=== PATIENT | male | born 1940 | race Caucasian/White ===

== ENCOUNTER 2019-01-25 08:31 | Day surgery (SDC) | payer MEDICARE, OTHER ==
[2019-01-19 10:37] LABS: HEMATOCRIT 38.6 % (37.9-51.0); HEMOGLOBIN 13.8 g/dL (13.5-17.0); MEAN CORPUSCULAR HEMOGLOBIN 33.7 pg (27.0-33.4); MEAN CORPUSCULAR HGB CONC 35.7 g/dL (32.0-36.0); MEAN CORPUSCULAR VOLUME 94 fl (80-97); PLATELET COUNT 228 10^3/uL (150-450); RED BLOOD COUNT 4.08 10^6/uL (4.35-5.55); WHITE BLOOD COUNT 5.5 10^3/uL (4.0-10.5)
[~2019-01-25 08:31] MED LIST: ACETAMINOPHEN 325 MG TABLET PO PRN; CEFAZOLIN 1 GM/D5W RTU 1 GM/50 ML RTUPB IV ONE; CEFAZOLIN 1 GM/D5W RTU 1 GM/50 ML RTUPB IV PRN; LACTATED RINGERS 1000 ML IV PRN; LIDOCAINE 0.5% INJ-PF (5 MG/ML) 50 ML SDV SUBCUT PRN
[2019-01-25] MEDS ORDERED: KETOROLAC TROMETHAMINE 60 MG/2 ML SDV ONE (10:17)
[2019-01-25] MEDS ORDERED: SUCCINYLCHOLINE CHLORIDE INJ 200 MG/10 ML VIAL ONE (10:17)
[2019-01-25] MEDS ORDERED: ONDANSETRON HCL INJ/PF 4 MG/2 ML SDV ONE (10:17)
[2019-01-25] MEDS ORDERED: DEXAMETHASONE SOD PHOSPHATE INJ 4 MG/1 ML VIAL ONE (10:17)
[2019-01-25] MEDS ORDERED: ROCURONIUM BROMIDE INJ 50 MG/5 ML VIAL IV ONE (10:17)
[2019-01-25] MEDS ORDERED: BUPIVACAINE HCL 0.25 % INJ/PF (2.5 MG/1 ML) 30 ML VIAL ONE (11:26)
[2019-01-25] MEDS ORDERED: BUPIVACAINE INJ/PF LIPOSOME/PF 266 MG/20 ML SDV ONE (11:26)
[2019-01-25] MEDS ORDERED: HYDROMORPHONE HCL INJ/PF 2 MG/ML AMPULE ONE (11:30)
[2019-01-25] MEDS ORDERED: MIDAZOLAM 2 MG/2 ML INJ ONE (11:30)
[2019-01-25] MEDS ORDERED: ACETAMINOPHEN 1,000 MG/100 ML RTUPB IV ONE (11:31)
[2019-01-25] MEDS ORDERED: PROPOFOL INJ 200 MG/20 ML VIAL IV ONE (11:31)
[2019-01-25] MEDS ORDERED: MORPHINE SULFATE 10 MG/ML INJ IV PRN (12:28)
[2019-01-25] MEDS ORDERED: FENTANYL CITRATE INJ/PF 100 MCG/2 ML AMPUL IV PRN ×3 (12:28)
[2019-01-25] MEDS ORDERED: PROMETHAZINE HCL INJ 25 MG/1 ML VIAL IV PRN (12:28)
[2019-01-25] MEDS ORDERED: MEPERIDINE HCL/PF INJ 25 MG/1 ML DISP.SYRIN IV PRN (12:28)
[2019-01-25] MEDS ORDERED: ONDANSETRON HCL INJ/PF 4 MG/2 ML SDV IV PRN (12:28)
[2019-01-25] MEDS ORDERED: DIPHENHYDRAMINE HCL 50 MG/ML VIAL IV PRN (12:28)
[2019-01-25] MEDS ORDERED: OXYCODONE-ACETAMINOPHEN 5-325 MG TABLET PO PRN (13:25)
--- NOTE | 2019-01-25 13:25 | Discharge Summary ---
Discharge Summary (SDC) - Discharge Final Diagnosis: Left indirect inguinal hernia Date of Surgery: 01/25/19 Discharge Date: 01/25/19 Condition: Good Treatment or Instructions: [facility] [address] [place] [id number] Discharge Instructions: Open Abdominal Procedures (Hernia, Bowel Surgery) 1.General Information: a. DO NOT DRIVE a car or operative machinery for 1-2 weeks. b. DO NOT consume alcohol, tranquilizers, sleeping medication, or any non- prescribed medication for 24 hours unless approved by your doctor or as long as taking pain medication. c. DO NOT make important decisions or sign any important papers for the first 24 hours after surgery. d. When discharged home the same day as surgery have a responsible person with you the first night. 2.Activity Restriction: 8 weeks; a. Avoid heavy lifting (> 10-15 lbs), straining abdominal muscles and sports, mowing lawn, vacuum film cleaner and bending over a lot. b. Walking is important to avoid blood clots in the legs and deep breathing can prevent pneumonia. c. If it fine to go for walks, up and down steps, and ride in a car. 3.Treatment: a. You may shower in 24 hours. Leave skin glue intact. You should not bathe in a tub or go swimming for 2 weeks. You may cover the incision with gauze and tape if it is more comfortable. c. Do not use oils, powders, or lotion on your incision. 4.Medications: a. You may take prescription tablets for pain if needed, one every 4 hours (_T oradol). c. You may resume all normal medications unless a change is specified by your doctors. 5.Diet: a. If going home the same day as surgery start with clear liquids, and if you do well then advance to normal foods low inf fat and protein. Smaller portion size may be evans the first night. 6.Notify Physician If: a. Pain is not relieved by pain medication b. Persistent nausea and vomiting c. Chills, fever (above 101) d. Persistent bleeding or swelling at the operative site e. Unable to urinate for 6-8 hours f. Increased redness, drainage, or foul smelling discharge from incision 7. Follow Up Care: a. Please call our office to schedule an appointment with your doctor for 2 weeks. In the event of any postoperative problems or questions you may call our office during business hours or the On-Call surgeon through the clay press operator [facility]. [facility] [phone] [facility] [phone] (Ask for the surgeon quality control auditor) b. I understand the instructions for my postoperative care as described above and a copy has been given to me. Witness Patient/Significant Other Date Prescriptions: Ketorolac Tromethamine [Toradol 10 mg Tablet] 10 mg PO Q6HP PRN #20 tablet PRN Reason: Referrals: DILAN BRIDGES FNP [Primary Care Provider] - Discharge Diet: As Tolerated Discharge Activity: Balance Activity w/Rest, No Lifting Over 10 Pounds, No Lifting/Push/Pulling, Walk Frequently Report the Following to Your Physician Immediately: Increase in Pain, Fever over 101 Degrees, Unusual Bleeding, Redness, Swelling, Warmth, Increased Soreness, Drainage-Foul Smelling
--- NOTE | 2019-01-25 14:46 | Operative Report ---
Operative Report DATE OF SURGERY: 01/25/19 PREOPERATIVE DIAGNOSIS: Left inguinal hernia, indirect POSTOPERATIVE DIAGNOSIS: Same OPERATION: Left inguinal exploration, operative repair of left with plug and overlay polypropylene mesh repair prosthesis. SURGEON: ORLIN PARKER VASCULAR RADIOLOGIST: RENAE WILLIAM ANESTHESIA: GA TISSUE REMOVED OR ALTERED: Left inguinal hernia sac and cord lipoma COMPLICATIONS: None ESTIMATED BLOOD LOSS: Scant INTRAOPERATIVE FINDINGS: See below PROCEDURE: The patient was seen in the preop holding over the left inguinal area was marked. He was then taken to the main operating where general anesthesia was induced. Left groin was clipped of hair, prepped and draped sterile fashion including the genitalia. Surgical plan and surgical timeout were conducted. Skin was anesthetized with quarter percent Marcaine. A standard 7 cm left inguinal herniorrhaphy incision was made with a #10 blade. Subcutaneous tissue Giovanny's fascia divided as encountered. The external oblique aponeurosis was anesthetized with quarter percent Marcaine, opened along direction of its fibers, and superior and inferior fascial flaps developed. Contents to the inguinal canal dissected out using blunt and electrocautery dissection. The spermatic cord and vessels were from the cord lipoma which was elongated and originating from the retroperitoneum at the level of the internal ring. Complete mobilization of the cord lipoma was then undertaken, and was amputated at its base of the stalk oversewed with 3-0 Vicryl suture. The indirect inguinal hernia sac was mobilized to its point of origination, opened, and found to communicate freely with the peritoneal cavity. There were no incarcerated contents. The sac was twisted on its base, oversewn at its base with a 2-0 Vicryl suture, then amputated and passed off to pathology. We now cleaned up the floor the inguinal canal, and confirmed we were going to repair a indirect inguinal hernia defect by occupying the internal ring with a inverted medium size plug mesh. This was brought onto the field after checking for appropriate timing of expiration. It was deployed into the internal ring, secured to conjoined tendon with 3 interrupted 0 PDS sutures. The overlay mesh was then used to reinforce the entire floor the inguinal canal after trended to the appropriate configuration, and selling it to Poupart's ligament, conjoined tendon in a circumferential fashion with 0 PDS sutures. The new internal ring was checked for patency and appropriate degree of laxity it was felt to be satisfactory. Approximately 10 sutures were used to secure the mesh into position. Of note the ilioinguinal and genitofemoral nerves were not visualized during the dissection. The external oblique aponeurosis was closed along the direction of its fibers with 2-0 Vicryl suture again ensuring the opening to the external ring was of appropriate caliber. Giovanny's fascia skin closed with 3-0 Vicryl, Dermabond glue applied, 20 cc of Exparel deployed into the subcutaneous tissues. Patient tolerated the procedure well, extubated, and taken recovery in stable condition. The physician assistant property manager, Ms. Kuo, provided assistance during this case by: Assisting retracting tissue, instillation of local anesthesia and closure of skin incisions.
[2019-01-25 14:59] VITALS: BP 115/72
== END 2019-01-25 14:55 | disposition home or self-care (01) ==
LOC: OROUT 08:31
PROVIDERS: ATTEND Surgery
DX: K40.90 Unilateral inguinal hernia, without obstruction or gangrene, not specified as recurrent (principal); D17.6 Benign lipomatous neoplasm of spermatic cord; E11.9 Type 2 diabetes mellitus without complications; I10 Essential (primary) hypertension; N40.0 Benign prostatic hyperplasia without lower urinary tract symptoms; K21.9 Gastro-esophageal reflux disease without esophagitis; Z87.891 Personal history of nicotine dependence; Z79.899 Other long term (current) drug therapy; Z79.84 Long term (current) use of oral hypoglycemic drugs; Z79.82 Long term (current) use of aspirin
CPT/HCPCS: 36415; 82962; 85027; 88302 ×2; 49505; C1781; J2250; J0690; J3490; J1100; J1885; J1170; J0330; J2405; J2704; J0131; C9290; 830